=== PATIENT | male | born 1990 | race African-American/Black ===

== ENCOUNTER 2017-01-01 16:21 | Emergency (ER) | payer BC, OTHER ==
[~2017-01-01 16:21] MED LIST: CALCIUM ACETAT667 M1 PO; CIPRO PO; DIOVAN160 MG PO; LEVAQUIN PO; LOPRESSOR PO; LORTAB 7.5-5001 TAB PO; METRONIDAZOLE PO; MICRO-K PO; PHENERGAN PO; SENSIPAR30 MG PO; VICODIN 5/500 T1 TAB PO; ZEMPLAR1 MCG PO; [UNRECOGNIZED DRUG - OTHER]
== END 2017-01-01 16:50 | disposition home or self-care (01) ==
LOC: CFTX 16:21
DX: H10.023 Other mucopurulent conjunctivitis, bilateral (principal)
CPT/HCPCS: 99283

== ENCOUNTER 2017-01-04 18:23 | Emergency (ER) | payer BC, OTHER | END 2017-01-04 18:37 | disposition home or self-care (01) | LOC: CED 18:23 | DX: H10.33 Unspecified acute conjunctivitis, bilateral (principal); I10 Essential (primary) hypertension | CPT/HCPCS: 99282 ==

== ENCOUNTER 2017-04-09 14:28 | Inpatient (IN) | payer MEDICARE ==
--- NOTE | ~2017-04-09 | CO ---
Unit #: [id number] #: [id number] Patient: TOBI HURTADO [id number] [address] [place], [place] [address] [id number] MR#: [id number] NAME: TOBI HURTADO ROOM: 574 Age: 26 Sex: M Admission Date: 04/09/2017 : 1990 Attending Physician: Kelsey Valdez M.D. Consultation Date: 04/12/2017 CONSULTATION REPORT REASON FOR CONSULTATION Evaluate for possible removal of peritoneal dialysis catheter. Thank you very much for asking us to see Mr. Hurtado. HISTORY OF PRESENT ILLNESS He is a 26-year-old black male, who has a long history of renal disease. In 2008, he had the right lower quadrant peritoneal dialysis catheter placed. This did not work well, and he subsequently had it removed and had a left lower quadrant peritoneal dialysis catheter placed. He has used since 2008. In the antrum, he had an umbilical hernia repair performed reportedly with mesh per his history. He has not been doing well with peritoneal dialysis and is being changed to hemodialysis. He presented with some abdominal pain and discomfort. A CT scan of the abdomen and pelvis revealed a right renal mass. He is being evaluated by Urology. I have asked at this time to evaluate for possible removal of his peritoneal dialysis catheter. PAST MEDICAL HISTORY End-stage renal disease. PAST SURGICAL HISTORY Appendectomy, peritoneal dialysis catheter placement, and tunneled dialysis catheter placement. MEDICATIONS Please see med rec sheet. ALLERGIES No known medical allergies. FAMILY HISTORY Noncontributory. SOCIAL HISTORY No tobacco or alcohol use. IMMUNIZATION STATUS Unknown. REVIEW OF SYSTEMS Negative except for above. Unit #: [id number] #: [id number] Patient: TOBI HURTADO PHYSICAL EXAMINATION GENERAL: Well-developed, well-nourished, black male, in no apparent distress. Awake, alert, and oriented. VITAL SIGNS: Afebrile with a pulse of 117, respirations 20, and blood pressure 122/88. NECK: Supple. No thyromegaly or adenopathy. BACK: No CVA or spinous tenderness. ABDOMEN: The patient's abdomen is mildly distended but soft. No rebound, peritoneal signs, or masses. There was some mild to moderate diffuse tenderness but no guarding. His peritoneal dialysis catheter is in the left lower quadrant, and there is no erythema or induration or drainage. There was no evidence of infection. DIAGNOSTIC STUDIES LABORATORY RESULTS: Reveal the patient to have a CMP that shows a glucose of 101, BUN 40, creatinine 10.7, sodium 132, and chloride 99. Liver function studies on admission were normal. The patient's white count is 16 with hemoglobin of 10.6, and hematocrit of 33.4. Peritoneal dialysis fluid had no growth so far on culture. IMPRESSION A 26-year-old black male, who is being changed to hemodialysis. At some point, he will need his peritoneal dialysis catheter removed. We await the evaluation by Urology as if he needs an open or laparoscopic procedure to evaluate or remove his renal mass. Then, his peritoneal dialysis catheter could be removed at the same time. Although, all this was fully discussed with the patient in detail as well as his mother, she is at the bedside, we have also discussed all per telephone with Dr. Juan Edwards, of Nephrology. Dictated by... Yo Davidson M.D. DIAMANTEG/samira TD: 04/13/2017 13:41 JOB #: [id number] CC: Courtney Tejada M.D. [facility] Kelsey Valdez M.D. CONSULTATION REPORT Page 1 of 1 X Yo Davidson MD X CONSULTATION REPORT
--- NOTE | ~2017-04-09 | CT4 ---
[facility] A Service of [facility] & [facility] RADIOLOGY TEXT RESULTS PATIENT: TOBI HURTADO LOCATION: [facility] 567-01 : [birth year] UNIT #: [id number] AGE: [address]: Kelsey Valdez MD SEX: M ORDER DR: [id number] [facility] [address] [place]. [place], [place] [address] [id number] MR#: [id number] Acc #: [id number] NAME: TOBI HURTADO : 1990 SEX: M STUDY DATE/TIME: 04/09/2017 16:39 UNIT: CEDOF ROOM: 04485 STUDY DESCRIPTION: CT Abd and Pelv Wo Cont Attending Physician: Renetta Rodriguez M.D. Ordering Physician: Tobi Campbell M.D. MEDICAL IMAGING REPORT This report is preliminary unless electronic signature is present EXAM CT abdomen and pelvis without contrast HISTORY Abdomen pain. Low back pain starting a few weeks ago. COMPARISON STUDIES 04/11/2011. TECHNIQUE Axial 3 mm images were obtained through the abdomen and pelvis without IV or oral contrast. This CT exam was performed with one or more of the following radiation dose reduction techniques: automatic exposure control, adjustment of mA and/or kV according to patient size, and iterative reconstruction. FINDINGS The lung bases are clear. There is fluid partially filling the abdomen and pelvis which either represents ascites or dialysate. The patient has a peritoneal dialysis catheter present. The liver, gallbladder, spleen, pancreas and adrenal glands are normal. The kidneys contain multiple cysts and there is 1 hyperdense lower pole lesion projecting off of the right kidney that is 2.6 cm in diameter. This lesion is 2.6 cm in maximum dimension, measures 37 Hounsfield units. Back in 2010, there was a lesion projecting off of the same position of the kidney and only measured 3 Hounsfield units, so it was a cyst. It measured about 1.6 cm in size. The aorta is normal in size. There is no adenopathy. The bowel is normal. The bladder, prostate gland are normal. The bones are unremarkable. IMPRESSION 1. There is fluid in the abdomen and pelvis which may represent ascites [facility] A Service of [facility] & [facility] RADIOLOGY TEXT RESULTS PATIENT: TOBI HURTADO LOCATION: [facility] 567-01 : [birth year] UNIT #: [id number] AGE: [address]: Kelsey Valdez MD SEX: M ORDER DR: or dialysate. The patient has a peritoneal dialysis catheter present. 2. There is an indeterminate lesion projecting inferiorly from the right kidney. It measures 2.7 cm in diameter and has a measurement of 37 Hounsfield units. It is likely a hyperdense cyst since on the previous study in 2010, there was a 16 mm lesion in this region that was only 3 Hounsfield units, indicating it was a simple cyst. If desired, a unilateral ultrasound of the right kidney should confirm this is a cyst. 3. There are multiple low-density cysts in each kidney. 4. Otherwise, the study is normal. Dictated by... Nelson Ross M.D. THIS IS AN ELECTRONICALLY VERIFIED REPORT Nelson Ross M.D. at 04/10/2017 6:06 AM ROSANA/clint TD: 04/10/2017 00:06 JOB #: [id number] MEDICAL IMAGING REPORT Page 1 of 1 COPY
--- NOTE | ~2017-04-09 | EKG ---
PATIENT: TOBI HURTADO UNIT #: [id number] Ventricular Rate: 111 BPM Atrial Rate: 111 BPM P-R Interval: 116 ms QRS Duration: 90 ms Q-T Interval: 332 ms QTC Calculation(Bezet): 451 ms P Lyons: 55 degrees Calculated R Lyons: 15 degrees Diagnosis Line: Sinus tachycardia Diagnosis Line: Nonspecific T wave abnormality Diagnosis Line: Abnormal ECG Diagnosis Line: When compared with ECG of 01-JAN-2010 23:51, Diagnosis Line: Inverted T waves have replaced nonspecific T wave Diagnosis Line: abnormality in Inferior leads Diagnosis Line: Confirmed by ANGELIC RODRIGUEZ MD ([id number]) on 04/15/2017 Diagnosis Line: 6:42:09 PM INTERPRETING MD: JENNIFER GASPAR
--- NOTE | ~2017-04-09 | CO ---
Unit #: [id number] #: [id number] Patient: TOBI HURTADO [id number] [address] [address] [id number] I MR#: [id number] NAME: TOBI HURTADO ROOM: 567 Age: 26 Sex: M Admission Date: 04/09/2017 : 1990 Attending Physician: Kelsey Valdez M.D. Primary Care Physician: Yolie Primary Care Physician Requesting Physician: Renetta Rodriguez M.D. Consultation Date: 04/09/2017 CONSULTATION REPORT REASON FOR CONSULTATION Antibiotic management. HISTORY OF PRESENT ILLNESS The patient is a 26-year-old male with a history of chronic renal failure. He is supposed to be on peritoneal dialysis since 2008, but lately has not been regular in doing his dialysis as directed. Instead of four times a day he has been doing it two times a day, so his hemodialysis catheter had been put in late last month and he has been started on hemodialysis. The patient is now admitted with two weeks of abdominal pain. No fevers. No chills. Some nausea and vomiting, diarrhea. Pain got worse and after the patient came in to the emergency room here he had low-grade fever, leukocytosis. Peritoneal fluid shows 2000 WBCs positive leukocytes. Cultures are pending. It looks like he got some tobramycin, Rocephin and vancomycin. Infectious disease consultation was requested for further evaluation and antibiotic management. PAST MEDICAL HISTORY 1. Chronic renal failure as noted above. 2. Peritoneal dialysis catheter placement. 3. Shiley placement. SOCIAL HISTORY Noncontributory. FAMILY HISTORY Noncontributory. ALLERGIES No known drug allergies. CURRENT MEDICATIONS Antibiotics as noted above. PHYSICAL EXAMINATION GENERAL: The patient is lying in bed, comfortable, in no distress. VITALS: Temperature 98.4, t-max 100.4, respiratory rate 14, blood pressure 127/78. HEENT: Unremarkable. CHEST: Clear to auscultation. HEART: Normal S1 and S2. ABDOMEN: Soft, nondistended, fairly tender. No guarding or rebound noted. Unit #: [id number] #: [id number] Patient: TOBI HURTADO DIAGNOSTIC STUDIES IMAGING: CT of the abdomen and pelvis shows some abdominal fluid, which could represent some ascites, some renal lesions compatible with cysts. LABORATORY: BUN 73, creatinine 15.5, peritoneal fluid has 4,691 WBCs, 13% neutrophils, 35% lymphocytes. Gram stain is negative, cultures pending. White blood cell count 15, hemoglobin 9.6, platelets 386. Urinalysis was nitrate positive. Some pyuria. Blood culture and urine culture pending. Peritoneal fluid gram stain negative. ASSESSMENT 1. Peritonitis secondary to PD catheter. 2. Endstage renal disease on dialysis, initially PD catheter dialysis, now hemodialysis. PLAN At this time the differential on the PD catheter white blood cell count is surprising to be lymphocytic. I would have expected it to be neutrophilic, considering that this sounds like a secondary peritonitis, which is a possibility of either an atypical infection or noninfectious cause. I will go ahead and continue the patient on vancomycin, but switch her Rocephin to tobramycin to increase her spectrum and (1) . Will consider sending peritoneal fluid for cytology. Will wait for opinion from the renal service. Follow up on cultures. Further recommending depending on the course. I would like to thank Dr. Rodriguez for asking us to participate in the care of this patient. We will follow this patient along with you. Dictated by... Courtney Rhoades TD: 04/11/2017 11:10 JOB #: [id number] CONSULTATION REPORT Page 1 of 1 X Ramiro Moses MD X CONSULTATION REPORT
--- NOTE | ~2017-04-09 | HP ---
Unit #: [id number] #: [id number] Patient: TOBI HURTADO [id number] [address] [place], [place] [address] [id number] MR#: [id number] NAME: TOBI HURTADO ROOM: Age: 26 Sex: M Admission Date: 04/09/2017 : 1990 Attending Physician: Vivek Harmon M.D. Primary Care Physician: No Primary Care Physician HISTORY AND PHYSICAL CHIEF COMPLAINT Abdominal pain. DISCUSSION This is a 26-year-old gentleman who has a history of chronic renal failure on peritoneal dialysis, recently been on hemodialysis. He presented to emergency room with chief complaining of two-weeks of abdominal pain. On CT scan, a CT scan shows fluid in the abdomen and pelvis, multiple cysts in the kidneys but peritoneal fluid has some neutrophils and patient is diagnosed with spontaneous bacterial peritonitis. Patient received in the emergency room vancomycin and gentamicin, Rocephin one dose and eventually been admitted. He denies fever, chills, cough or any other complaint. He said he has been having diffuse lower abdominal pain for last two weeks. PAST MEDICAL HISTORY 1. History of chronic renal failure on peritoneal dialysis, now on the hemodialysis. 2. History of Shiley placement. 3. History of a couple of minor procedures for placement of peritoneal dialysis. ALLERGIES No known drug allergies. HOME MEDICATION He takes only: 1. Calcium acetate 668 mg. 2. Fosrenol 1 g with each meal. FAMILY HISTORY Noncontributory. SOCIAL HISTORY Denies alcohol, denies other illicit drug use. REVIEW OF SYSTEMS Negative except as per history of present illness. PHYSICAL EXAMINATION GENERAL: On examination young man lying in the bed comfortably currently not in any distress. On general examination is alert, awake, oriented x3, comfortable, not in any distress. VITAL SIGNS: Current vitals are following: Temperature is 98.7, heart rate is 110, respiratory rate is 15, blood pressure 139/86, oxygen is 100% Unit #: [id number] #: [id number] Patient: TOBI HURTADO on room air. HEENT: On HEENT examination pupils equally react to light and accommodation. Head is normocephalic and atraumatic. NECK: Supple. No JVD. HEART: S1, S2, regular rate and rhythm. ABDOMEN: Abdomen is soft. Diffuse tenderness positive. No guarding. No rigidity. EXTREMITIES: Inspection normal. No cyanosis. No clubbing. No edema. NEUROLOGIC: No focal neurological deficit. DIAGNOSTIC STUDIES LABORATORY: Workup is following: Abdominal fluid shows hazy appearance, WBCs too numerous to count, RBCs less than 1000, neutrophils 13. Lactic acid level is 0.5. UA has positive nitrite, WBC 50 t0 100. Sodium 135, potassium 4.2, glucose 97, BUN 67, creatinine 14.2, LFTs within normal limits, white count 14, hemoglobin 10, hematocrit 34, platelets 411. ASSESSMENT AND PLAN 1. Spontaneous bacterial peritonitis: Patient receives vancomycin, gentamicin. Ask ID, Dr. Ramiro Moses, to evaluate. 2. Urinary tract infection: IV Rocephin. 3. End-stage renal disease on peritoneal dialysis, currently on hemodialysis: Ask Nephrology to evaluate. Dictated by Courtney White/lyndon TD: 04/09/2017 22:58 JOB #: [id number] HISTORY AND PHYSICAL Page 1 of 1 X X HISTORY AND PHYSICAL
--- NOTE | ~2017-04-09 | DS ---
Unit #: [id number] #: [id number] Patient: TOBI HURTADO [id number] [address] [address] [id number] I MR#: [id number] NAME: TOBI HURTADO ROOM: 574 Age: 26 Sex: M Admission Date: 04/09/2017 : 1990 Discharge Date: 04/15/2017 Attending Physician: Kelsey Valdez M.D. Primary Care Physician: No Primary Care Physician DISCHARGE SUMMARY PRINCIPAL DIAGNOSES 1. Sepsis secondary to peritoneal dialysis catheter peritonitis. Causative organism not obtained. 2. Right renal mass concerning for underlying malignancy. 3. Systolic congestive heart failure with ejection fraction of 30 to 35%. 4. Moderate pericardial effusion secondary to noncompliance with peritoneal dialysis. 5. Tachycardia. 6. End-stage renal disease, now maintained on hemodialysis Wednesday, , Wednesday. 7. Anemia of chronic kidney disease. Discharge hemoglobin 8.2. 8. Constipation, now resolved. 9. Moderate protein malnutrition. CONSULTANTS Dr. Edwards, Nephrology. Dr. Stone, Cardiology. Dr. Davidson, General Surgery. Dr. Orlando, Urology. Dr. Davila, Infectious Disease. PROCEDURES 1. Two-dimensional echocardiogram on April 14, 2017, with ejection fraction of 30 to 35%. Severe apical hypokinesis with normal contractility at the base of the left ventricle seen. Right ventricular systolic pressure of 30 to 40 mmHg. Mild tricuspid regurgitation noted, moderate pericardial effusion noted. 2. Removal of peritoneal dialysis catheter on April 14, 2017, this occurred without complication. 3. CT scan of the abdomen and pelvis without contrast on April 09, 2017, with fluid in the abdomen and pelvis consistent with dialysate. Indeterminant lesion projecting inferiorly from the right kidney measuring 2.7 cm in diameter. Multiple low density cyst in each kidney. 4. Bilateral renal ultrasound on April 14, 2017, with exophytic lesion on the right kidney. No definite blood flow. Both kidneys are atrophic. CLINICAL HISTORY AND HOSPITAL COURSE Mr. Hurtado is a nice 26-year-old -Indian male with a history of end-stage renal disease maintained on peritoneal dialysis who presents to the emergency department with complaints of abdominal pain. Please refer to H and P for further details. Patient underwent removal of dialysate fluid in the emergency department with a significant amount of white blood Unit #: [id number] #: [id number] Patient: TOBI HURTADO and patient was subsequently admitted for presumed peritonitis. Patient was started on empiric antibiotics and Infectious Disease was consulted. Initial cultures from the emergency department did not have any growth; however, fluid sample was small, thus, a second fluid sample was obtained and this also remained negative. However, patient has remained afebrile and leukocytosis has improved. He is being transitioned to oral antibiotics in the care of Infectious Disease and will complete a course of treatment as noted. Peritoneal dialysis catheter was removed by General Surgery. Nephrology was consulted given his renal disease. Patient had been noncompliant with peritoneal dialysis and has now been transitioned to hemodialysis which he will continue as noted. Patient was also having persistent tachycardia and was placed on low-dosed beta blockers. Two-dimensional echocardiogram was done revealing a moderate pericardial effusion likely secondary to his poor dialysis compliance. This should resolve on its own. Echo also revealed decreased ejection fraction and Dr. Stone was consulted. At this time, plan is to complete course of treatment for patient's peritonitis, continue hemodialysis and as an outpatient, patient will undergo cardiac catheterization to ensure vessels are clear. CT scan of the abdomen and pelvis done in the emergency department for evaluation of the patient's abdominal pain revealed a mass on the right kidney. Ultrasound revealed this to be a solid lesion, for this reason, Dr. Orlando was consulted and there were concerns that perhaps this is underlying malignancy. Plan is for patient to undergo radiofrequency ablation at [facility], under the care of Dr. Orlando, as an outpatient. Patient did also have some complaints of constipation but he has been able to have bowel movements during hospitalization, and this has resolved. Patient will be discharged home later today with medications as noted. DISCHARGE CONDITION Stable. DISCHARGE STATUS Discharged to home. DISCHARGE MEDICATIONS 1. Diflucan 200 mg p.o. daily for 6 days. 2. Coreg 6.25 mg p.o. b.i.d. 3. Flagyl 500 mg p.o. t.i.d. for another 6 days. 4. Percocet 5/325 one tablet p.o. q.4 hours p.r.n. for pain, number given 15. 5. Fosrenol 1 g p.o. t.i.d. with meals. 6. Levaquin 750 mg p.o. every 48 hours for another 4 doses, next dose is due April 16, 2017. DISCHARGE INSTRUCTIONS Patient was instructed to continue hemodialysis Tuesdays, , Saturdays. He is to follow a regular diet but monitor salt intake. FOLLOW UP Unit #: [id number] #: [id number] Patient: TOBI HURTADO Patient will follow-up with Dr. Stone on May 06, 2017, for an echo at 2:45 p.m. and then will be seen by Dr. Stone afterwards. He will follow up with his primary accounting advisory services manager, Dr. Douglas, as previously scheduled. He will follow up with Dr. Orlando in 1-2 weeks with plans for outpatient radiofrequency ablation of the right renal mass. Dictated by... Kelsey Valdez M.D. KATHY/amelia TD: 04/15/2017 23:19 JOB #: [id number] DISCHARGE SUMMARY Page 1 of 1 X Kelsey Valdez MD X DISCHARGE SUMMARY
--- NOTE | ~2017-04-09 | CO ---
Unit #: [id number] #: [id number] Patient: TOBI HURTADO [id number] [address] [address] [id number] I MR#: [id number] NAME: TOBI HURTADO ROOM: 567 Age: 26 Sex: M Admission Date: 04/09/2017 : 1990 Attending Physician: Kelsey Valdez M.D. Primary Care Physician: No Primary Care Physician Consultation Date: 04/10/2017 CONSULTATION REPORT REASON FOR CONSULT Dialysis needs. HISTORY OF PRESENT ILLNESS Mr. Hurtado is a 26-year-old -[place] male with longstanding history of kidney disease going back to 2008. Overall, the patient is a poor historian and very quiet. Apparently, he has been recently converted over from peritoneal dialysis to hemodialysis and had a tunneled dialysis catheter placed last week. He had his first hemodialysis treatment on and would be due for his second one today. It is not clear why he was switched over as the office is closed here with it being the weekend. He states that he was not doing his peritoneal dialysis as instructed, possibly only doing three of four treatments today. When I asked why he was not compliant with his treatments, he said it was related to trying to work two jobs. Patient presented with some abdominal pain to the emergency room. He did have an elevated white blood cell count and is being treated for peritonitis. Patient states that he has had peritonitis before, but he says he is not hurting as bad as he did during those other episodes. He denies any chest discomfort or shortness of breath. No swelling. He does still make urine. PAST MEDICAL HISTORY 1. End-stage renal disease, unknown cause. 2. Hyperphosphatemia. PAST SURGICAL HISTORY 1. Appendectomy. 2. Peritoneal dialysis catheter placement. 3. Tunneled dialysis catheter placement. MEDICATIONS Home meds are only binders, according to him, which are calcium acetate and Fosrenol. ALLERGIES No known drug allergies. FAMILY HISTORY He denies any knowledge of any other family members with kidney disease or dialysis. No personal or family history of hypertension or diabetes. SOCIAL HISTORY The patient is working in a warehouse. He denies alcohol, tobacco, or illicit drug use. Unit #: [id number] #: [id number] Patient: TOBI HURTADO REVIEW OF SYSTEMS A complete 12-point review of systems was completed with the above findings. In addition, he has had a low-grade fever here. No headaches or dizziness. No nosebleeds, sore throat, or earache. No chest pain or palpitations. No cough or hemoptysis. No nausea or vomiting with the abdominal pain. No diarrhea. No bright red blood per rectum or melena. No hematuria. No rashes or itching. No flank pain. No night sweats or hot flashes. No intolerance to heat. No bleeding issues. No recent weight changes unless otherwise indicated. The review of systems was negative. PHYSICAL EXAMINATION VITAL SIGNS: Patient is afebrile now with a T-max of 100.4, pulse 92, respiratory rate 16, blood pressure 126/80. I's and O's are positive by 254 mL. Urine output was 400 mL. GENERAL: This is a 26-year-old -[place] male, very quiet, again a poor historian but in no acute distress. HEENT: Head is atraumatic, normocephalic. Eyes show pale conjunctivae with no scleral icterus. No nasal drainage or nosebleed. Oropharynx is dry. No thrush. NECK: Shows no rigidity, no JVD. HEART: Regular rate and rhythm now with no murmur or rub appreciated. LUNGS: Clear with no wheezing or rhonchi. Breathing is nonlabored. ABDOMEN: Soft, diffusely tender with some guarding. He does have bowel sounds. He does have a peritoneal dialysis catheter in place in the left lower quadrant without drainage. EXTREMITIES: No lower extremity clubbing, cyanosis, or edema. SKIN: Dry with no rashes. MUSCULOSKELETAL: No CVA tenderness to palpation. LYMPHATIC: There is no neck, cervical lymphadenopathy. PSYCHIATRIC: Mood and affect appear normal. VASCULAR: The patient does have a right chest tunneled catheter in place with no erythema or drainage. DIAGNOSTIC STUDIES LABORATORY: Peritoneal dialysis fluid shows no organisms but a few white blood cells. Chemistry today: Sodium 131, potassium 4, chloride 95, bicarb 21, glucose 60, BUN 73, creatinine 15.5. CBC this morning: White count 15, hemoglobin 9.6, platelet count 386,000 with a left shift. Peritoneal fluid total white count was 4600 with 85% lymphs and 13% neutrophils. Lactic acid was normal. Urinalysis was nitrite positive with numerous white blood cells and bacteria with culture pending. Admission white count was 14.5. IMAGING: CT of the abdomen and pelvis did show a right kidney lesion that is larger than previous and indeterminate. Ultrasound was recommended. Multiple cysts in each kidney. ASSESSMENT AND PLAN 1. End-stage renal disease: I have ordered regular hemodialysis today to continue his Wednesday, , Wednesday schedule. Again, details are sketchy as to why he was switched over from peritoneal dialysis to hemodialysis but it sounds like it was a compliance issue. Not sure what the plans are as far as the peritoneal dialysis catheter but certainly a consideration could be given to removing the peritoneal dialysis catheter in light of his abdominal pain if he indeed is going to be a permanent hemodialysis patient. I will have Unit #: [id number] #: [id number] Patient: TOBI HURTADO to wait until Wednesday to discuss this with the peritoneal dialysis nurses. 2. Hyponatremia: This was due to his renal insufficiency and should correct with dialysis. 3. Metabolic acidosis: This should also correct with the bicarbonate with dialysis. 4. Urinary tract infection on antibiotics with culture pending. 5. Suspected peritonitis on multiple antibiotics per infectious disease. I would like to thank, Dr. Kelsey Valdez, for this consult and the opportunity to participate in the evaluation and care of Mr. Hurtado. Dictated by... Edwin Houston Jr., M.D. SJK/janice TD: 04/11/2017 14:32 JOB #: [id number] CONSULTATION REPORT Page 1 of 1 X Edwin Houston MD X CONSULTATION REPORT
--- NOTE | ~2017-04-09 | US77 ---
[facility] A Service of [facility] RADIOLOGY TEXT RESULTS PATIENT: TOBI HURTADO LOCATION: [facility] [id number] : [birth year] UNIT #: [id number] AGE: [address]: Kelsey Valdez MD SEX: M ORDER DR: [id number] [facility] [address] [place], [place] [address] [id number] I MR#: [id number] Acc #: [id number] NAME: TOBI HURTADO : 1990 SEX: M STUDY DATE/TIME: 04/11/2017 8:17 UNIT: [facility] ROOM: [facility] STUDY DESCRIPTION: US Kidney Bilateral Complete Attending Physician: Kelsey Valdez M.D. Ordering Physician: Edwin Houston Jr., M.D. Primary Care Physician: No Primary Care Physician MEDICAL IMAGING REPORT This report is preliminary unless electronic signature is present EXAM Bilateral renal ultrasound. HISTORY Right renal mass. Chronic renal failure. Patient is on peritoneal dialysis. Indeterminate exophytic right renal lesion seen on CT scan yesterday. TECHNIQUE Ultrasound of the kidneys was performed. FINDINGS The lower pole exophytic lesion from the right kidney is visualized. It measures 3 x 3 x 2.6 cm and appears to be solid. There is no internal flow visible. The kidney is 9.6 cm in length and has echogenic cortex which is slightly atrophic. There is fluid superior to the bladder with septations. Yesterday's CT scan shows a large amount of dialysate fluid versus ascites in the abdomen and this probably represents the same fluid, although the septations are not visible on the CT scan. The left kidney is very small measuring 5.1 cm in size and has some small cysts. IMPRESSION 1. The right kidney lower pole exophytic lesion seen on CT scan imaging yesterday appears solid on ultrasound. No definite blood flow is seen within it, but it clearly has internal architecture suggesting a solid lesion. Urology consult is recommended. I am not sure is unenhanced MRI would be useful in further delineating this lesion. 2. The fluid that was seen on the CT scan filling the pelvis and abdomen yesterday is also seen on the ultrasound, at least in the pelvis it shows multiple thin septations. 3. Both kidneys are atrophic. 4. The renal lesion has grown about 50% in volume since the [address] CT scan [facility] A Service of [facility] RADIOLOGY TEXT RESULTS PATIENT: TOBI HURTADO LOCATION: [place] [address] : [birth year] UNIT #: [id number] AGE: [address]: Kelsey Valdez MD SEX: M ORDER DR: when it had an appearance suggesting that it was a cyst. Dictated by... Nelson Ross M.D. THIS IS AN ELECTRONICALLY VERIFIED REPORT Nelson Ross M.D. at 04/12/2017 7:26 AM ROSANA/jaymie TD: 04/11/2017 15:07 JOB #: [id number] MEDICAL IMAGING REPORT Page 1 of 1 COPY
--- NOTE | ~2017-04-09 | EKG ---
PATIENT: TOBI HURTADO UNIT #: [id number] Ventricular Rate: 88 BPM Atrial Rate: 88 BPM P-R Interval: 132 ms QRS Duration: 90 ms Q-T Interval: 352 ms QTC Calculation(Bezet): 425 ms P Dunmore: 52 degrees Calculated R Dunmore: 24 degrees Calculated T Dunmore: 43 degrees Diagnosis Line: Normal sinus rhythm Diagnosis Line: Normal ECG Diagnosis Line: When compared with ECG of 14-APR-2017 19:33, Diagnosis Line: (unconfirmed) Diagnosis Line: Borderline criteria for Inferior infarct are no Diagnosis Line: longer Present Diagnosis Line: T wave inversion no longer evident in Inferior Diagnosis Line: leads Diagnosis Line: Confirmed by ANGELIC RODRIGUEZ MD ([id number]) on 04/15/2017 Diagnosis Line: 6:48:44 PM INTERPRETING MD: JENNIFER GASPAR
--- NOTE | ~2017-04-09 | OR ---
Unit #: [id number] #: [id number] Patient: TOBI HURTADO [id number] [address] [address] [id number] I MR#: [id number] NAME: TOBI HURTADO ROOM: 574 Date of Procedure: 04/14/2017 Admission Date: 04/09/2017 Surgeon: Bob Nieto M.D. : 1990 Attending Physician: Kelsey Valdez M.D. OPERATIVE REPORT PREOPERATIVE DIAGNOSIS Infected peritoneal dialysis catheter. POSTOPERATIVE DIAGNOSIS Infected peritoneal dialysis catheter. PROCEDURE PERFORMED Removal of infected peritoneal dialysis catheter. DIESEL [employer] MECH[employer]IC None. ANESTHESIA General. ESTIMATED BLOOD LOSS Minimal. IV FLUIDS 400 crystalloid. COMPLICATIONS None. INDICATIONS FOR PROCEDURE The patient is a 26-year-old gentleman with peritoneal dialysis catheter, who presents for removal. DESCRIPTION OF PROCEDURE The patient was taken to the operating theater and placed in supine position. General anesthesia was induced. His abdomen was prepped and draped. An incision was then made over the area of the cuff. This was cut down to the tubing. I then freed the cuff from the surrounding connective tissue. This allowed me to remove the tubing from the abdominal cavity. This was sent for culture, both anaerobic, aerobic, and fungal. I then closed the peritoneal defect with 2-0 Vicryl suture. I then closed the wound with 4-0 Vicryl. The patient tolerated the procedure well and sent to the recovery room in good condition. Dictated by... Bob Nieto M.D. Unit #: [id number] #: [id number] Patient: TOBI HURTADO JNO/modl TD: 04/15/2017 02:55 JOB #: [id number] OPERATIVE REPORT Page 1 of 1 X Bob Nieto MD PROCEDURE OPERATIVE NOTE
--- NOTE | ~2017-04-09 | CR63 ---
[facility] A Service of [facility] RADIOLOGY TEXT RESULTS PATIENT: TOBI HURTADO LOCATION: [place] [address] : [birth year] UNIT #: [id number] AGE: [address]: Kelsey Valdez MD SEX: M ORDER DR: [id number] [place] [id number] [facility] [place], [place] [address] [id number] I MR#: [id number] Acc #: [id number] NAME: TOBI HURTADO : 1990 SEX: M STUDY DATE/TIME: 04/15/2017 17:14 UNIT: [facility] ROOM: 4 STUDY DESCRIPTION: CR Chest 2 View Attending Physician: Kelsey Valdez M.D. Ordering Physician: Manoj Stone M.D. MEDICAL IMAGING REPORT This report is preliminary unless electronic signature is present EXAM two-view chest 04/15/2017 HISTORY 26-year-old male with shortness of air for 1 week. COMPARISON STUDIES Chest 12/25/2009. FINDINGS 2 views of the chest demonstrate low lung volumes. Lungs otherwise clear. Small bilateral pleural effusions. No pneumothorax. Right-sided IJ hemodialysis catheter with tip projecting over the right atrium. Heart size and mediastinum within normal limits. Pulmonary vasculature unremarkable. IMPRESSION 1. Low lung volumes with small bilateral pleural effusions. 2. Right IJ hemodialysis catheter with tip projecting over the right atrium. 3. No pneumothorax. Dictated by... Isaac Toth M.D. THIS IS AN ELECTRONICALLY VERIFIED REPORT Isaac Toth M.D. at 04/16/2017 9:10 AM MARIBEL/clint TD: 04/15/2017 20:30 JOB #: [id number] [facility] A Service [facility] RADIOLOGY TEXT RESULTS PATIENT: TOBI HURTADO LOCATION: [facility] 574 : [birth year] UNIT #: [id number] AGE: [address]: Kelsey Valdez MD SEX: M ORDER DR: MEDICAL IMAGING REPORT Page 1 of 1 COPY
--- NOTE | ~2017-04-09 | CO ---
Unit #: [id number] #: [id number] Patient: TOBI HURTADO [id number] [address] [address] [id number] I MR#: [id number] NAME: TOBI HURTADO ROOM: 221 Age: 26 Sex: M Admission Date: 04/09/2017 : 1990 Attending Physician: Kelsey Valdez M.D. Consultation Date: 04/12/2017 CONSULTATION REPORT CHIEF COMPLAINT Abdominal pain. HISTORY OF PRESENT ILLNESS A 26-year-old gentleman with chronic renal failure. He is on peritoneal dialysis. He has a history of recent CT scan that shows a 2.7 cm right lower pole mass. This is suspicious for neoplasm. The patient's abdominal pain associated with possible noncompliance with his peritoneal dialysis catheter. His pain is gnog-jz-olxdynpe, intermittently worse. PAST MEDICAL HISTORY Renal failure, Shiley placement. He has had peritoneal dialysis catheter x2. ALLERGIES No known drug allergies. MEDICATIONS He takes calcium acetate and Fosrenol. FAMILY HISTORY Noncontributory. SOCIAL HISTORY He denies smoking or drinking. REVIEW OF SYSTEMS Negative for 10 points except for some abdominal discomfort. PHYSICAL EXAMINATION VITAL SIGNS: Afebrile. Vital signs stable. HEENT: Eyes equal and reactive to light. NECK: Supple. HEART: Benign. LUNGS: Benign. EXTREMITIES: No cyanosis or edema. NEUROLOGIC: Cranial nerves II through X intact. DICTATION ENDS HERE Please note: This report has been placed on the patient's electronic Unit #: [id number] #: [id number] Patient: TOBI HURTADO medical record in an incomplete status following multiple physician notifications for a completion without a response or resolution. Dictated by... Courtney Tejada/samira TD: 04/13/2017 07:52 JOB #: [id number] CONSULTATION REPORT Page 1 of 1 X Loi Orlando MD CONSULTATION REPORT
--- NOTE | ~2017-04-09 | CO ---
Unit #: [id number] #: [id number] Patient: TOBI HURTADO [id number] [address] [address] [id number] I MR#: [id number] NAME: TOBI HURTADO ROOM: [facility] Age: 26 Sex: M Admission Date: 04/09/2017 : 1990 Attending Physician: Kelsey Valdez M.D. Primary Care Physician: No Primary Care Physician Consultation Date: 04/15/2017 CONSULTATION REPORT ADDENDUM PLAN Renal is currently following the patient. Dr. Stone will see the patient for further instructions and orders. Dictated by... Traci Rodriguez A.P.R.N. for Manoj Stone M.D. AM/aditya TD: 04/27/2017 15:10 JOB #: [id number] CONSULTATION REPORT Page 1 of 1 X Traci Rodriguez APRN CONSULTATION REPORT
--- NOTE | ~2017-04-09 | CO ---
Unit #: [id number] #: [id number] Patient: TOBI HURTADO [id number] [address] [place], [place] [address] [id number] I MR#: [id number] NAME: TOBI HURTADO ROOM: 574 Age: 26 Sex: M Admission Date: 04/09/2017 : 1990 Attending Physician: Kelsey Valdez M.D. Primary Care Physician: No Primary Care Physician Consultation Date: 04/15/2017 CONSULTATION REPORT REASON FOR CONSULTATION Pericardial effusion, abnormal EKG and EF of 30% to 35%. HISTORY OF PRESENT ILLNESS The patient is a 26-year-old -[place] male who does not have a protection specialist. He denies any past medical history of myocardial infarction and cardiac catheterization. The patient had a 2D echocardiogram done on April 14, 2017, which showed an EF of 30% to 35%, severe apical hypokinesis, mild TR with RVSP of 30 to 40 mmHg and a moderate effusion with no tamponade. The echo also showed contractible pattern that could suggest apical hollowing secondary to stress cardiomyopathy. His EKG showed possible old inferior [place]. The patient has a past medical history of renal disease. He was diagnosed with renal disease in 2008. He has been on peritoneal dialysis and follows with Dr. Saunders. The patient last week had a tunneled cath placed and was converted over to hemodialysis. Additional past medical history includes hyperphosphatemia and peritonitis. The patient presented to the ER with some abdominal pain. He was found to have an elevated white blood cell count and was treated for peritonitis and a urinary tract infection. He denies any nausea, vomiting, fever, chills or shortness of air. He does have occasional left anterior chest pain when he takes a deep breath. Again, cardiology has been consulted for the moderate pericardial effusion, abnormal EKG and low ejection fraction. PAST MEDICAL HISTORY 1. End stage renal disease, on hemodialysis, previously on peritoneal dialysis in 2008. 2. Hyperphosphatemia. 3. History of peritonitis. 4. Right renal mass. The patient is to have a radiofrequency ablation at [facility]. 5. Nonsmoker. PAST SURGICAL HISTORY 1. Appendectomy. 2. Peritoneal dialysis catheter placement and removal. 3. Tunneled dialysis catheter placement. ALLERGIES Unit #: [id number] #: [id number] Patient: TOBI HURTADO No known allergies. HOME MEDICATIONS Calcium acetate 688 mg and Fosrenol 1 g with each meal. FAMILY HISTORY Patient denies any family history of renal disease or coronary artery disease. SOCIAL HISTORY The patient denies alcohol, tobacco and illicit drug abuse. REVIEW OF SYSTEMS A ten point review of systems has been done and is considered otherwise negative unless indicated in the HPI. PHYSICAL EXAMINATION GENERAL: The patient is awake, alert, in no acute distress. VITAL SIGNS: Temperature 99.4, heart rate 109, respirations 18, blood pressure 125/71. He is oxygenating 97%. HEENT: Head is atraumatic, normocephalic. Pupils are equal, round and reactive. Extraocular movements are intact. No drainage from ears or nose. NECK: Supple. Trachea is midline. The patient has a left upper chest dialysis catheter. HEART: S1, S2. Regular rate and rhythm. No murmurs, rubs or gallops appreciated. ABDOMEN: Soft, tender and nondistended. Left lower quadrant bandage. EXTREMITIES: No clubbing, edema or cyanosis. SKIN: Appears to be warm, dry and intact without any unusual rashes or lesions. NEUROLOGIC: The patient is alert and oriented x4. He is pleasant and conversant. No focal deficits. Cranial nerves II-XII appear to be intact. DIAGNOSTIC STUDIES LABORATORY: White blood cells 11.3, hemoglobin 9, hematocrit 28.1, platelets 407, sodium 132, potassium 4.5, chloride 28, CO2 23, BUN 41, creatinine 9.5, glucose 88, magnesium 2.3, calcium 8.1, PTH 203, TSH 1.45. IMAGING: CT scan of the abdomen and pelvis shows a right kidney lesion that is larger than previous and indeterminate. Ultrasound was recommended. ASSESSMENT 1. Pericardial effusion, likely secondary to renal failure. 2. Acute systolic congestive heart failure with an left ventricular ejection fraction of 30% to 35%. 3. Possible old inferior wall myocardial infarction or stress cardiomyopathy. 4. End stage renal disease, on hemodialysis. 5. Peritonitis. 6. Recent peritoneal dialysis discontinued with peritoneal dialysis catheter removal. 7. Hypertension. Unit #: [id number] #: [id number] Patient: TOBI HURTADO Dictated by... Traci Rodriguez A.P.R.N. for Courtney Aldrich TD: 04/15/2017 09:04 JOB #: [id number] CONSULTATION REPORT Page 1 of 1 X Traci Rodriguez APRN CONSULTATION REPORT
[2017-04-09 15:55] LABS: BASOPHIL% 0.3 % (0-2.5); EOSINOPHIL% 0.1 % (0.0-7.0); HEMATOCRIT 34.8 % (38.0-50.0); HEMOGLOBIN 10.8 gm/dL (13.0-16.0); LYMPHOCYTE# 0.5 X10e3 (1.0-3.5); LYMPHOCYTE% 3.6 % (17.0-45.0); MEAN CORPUSCULAR HEMOGLOBIN 26.1 PG (28-34); MEAN CORPUSCULAR HGB CONC 31.1 g/dL (30-36); MEAN PLATELET VOLUME 6.6 FL (6.5-11.5); MONOCYTE% 7.1 % (3.0-12.0); NEUTROPHIL# 12.9 X10e3 (1.5-7.1); NEUTROPHIL% 88.9 % (40-75); PLATELET COUNT 411 X10e3 (140-420); RED BLOOD COUNT 4.14 X10e (3.90-5.60); RED CELL DISTRIBUTION WIDTH 15.3 % (11.0-15.5); WHITE BLOOD COUNT 14.5 X10e3 (4.0-10.5)
[2017-04-09 16:19] LABS: DIFF IND NO
[2017-04-09 16:20] LABS: ALBUMIN SERUM 2.5 g/dL (3.5-5.0); BILIRUBIN, DIRECT 0.1 mg/dL (0.0-0.2); BILIRUBIN,INDIRECT 0.9 mg/dL (0.0-0.9); BUN/CREATININE RATIO 4.71; CALCIUM SERUM 8.2 mg/dL (8.4-10.2); CREATININE SERUM 14.2 mg/dL (0.6-1.4); GLOM FILT RATE Estimated 4.8 mL/min (>60); POTASSIUM 4.2 mmol/L (3.5-5.1); PROTEIN TOTAL SERUM 7.3 g/dL (6.0-8.3)
[2017-04-09 17:26] LABS: URINE SOURCE CLEAN CATCH
[2017-04-09 17:34] LABS: URINE APPEARANCE CLEAR; URINE BILIRUBIN NEG (NEG); URINE BLOOD 3+ (NEG); URINE COLOR YELLOW; URINE GLUCOSE NEG (NEG); URINE KETONE TRACE (NEG); URINE LEUKOCYTE ESTERASE 3+ (NEG); URINE NITRATE POS (NEG); URINE PH 7.5 (5-8); URINE PROTEIN 2+ (NEG); URINE SPECIFIC GRAVITY 1.007 (1.003-1.035); URINE UROBILINOGEN 0.2 MG/DL (NEG)
[2017-04-09 17:35] LABS: CULTURE INDICATED? YES; URBCS1 AUWI 0-2 /[HPF] (0-2); URINE BACTERIA AUWI 1+ (NEGATIVE); URINE SQUAMOUS EPITHELIAL CELL NONE SEEN /[HPF]; UWBCS1 AUWI 50-100 (0-5)
[2017-04-09 20:16] LABS: BF TOTAL NUCLEATED CELL COUNT 4691 CMM (0-100); BODY FLUID APPEARANCE HAZY; BODY FLUID RBC <10000 CMM; BODY FLUID SOURCE PERITONEAL
[2017-04-09] MEDS ORDERED: CALCIUM ACETAT668 MG PO (22:40)
[2017-04-09] MEDS ORDERED: FOSRENOL1000 M1 PO (22:41)
[2017-04-10 05:36] LABS: BASOPHIL# 0.1 X10e3 (0-0.3); BASOPHIL% 0.4 % (0-2.5); EOSINOPHIL% 0.3 % (0.0-7.0); HEMATOCRIT 30.7 % (38.0-50.0); HEMOGLOBIN 9.6 gm/dL (13.0-16.0); LYMPHOCYTE# 1.4 X10e3 (1.0-3.5); LYMPHOCYTE% 9.1 % (17.0-45.0); MEAN CORPUSCULAR HEMOGLOBIN 26.3 PG (28-34); MEAN CORPUSCULAR HGB CONC 31.3 g/dL (30-36); MEAN PLATELET VOLUME 7.2 FL (6.5-11.5); MONOCYTE# 1.2 X10e3 (0-1.0); MONOCYTE% 8.3 % (3.0-12.0); NEUTROPHIL# 12.3 X10e3 (1.5-7.1); NEUTROPHIL% 81.9 % (40-75); PLATELET COUNT 386 X10e3 (140-420); RED BLOOD COUNT 3.66 X10e (3.90-5.60); RED CELL DISTRIBUTION WIDTH 15.3 % (11.0-15.5)
[2017-04-10 06:08] LABS: DIFF IND NO
[2017-04-10 06:09] LABS: BUN/CREATININE RATIO 4.7; CALCIUM SERUM 7.6 mg/dL (8.4-10.2); CREATININE SERUM 15.5 mg/dL (0.6-1.4); GLOM FILT RATE Estimated 4.3 mL/min (>60)
[2017-04-11 05:36] LABS: HEMATOCRIT 32.6 % (38.0-50.0); HEMOGLOBIN 10.3 gm/dL (13.0-16.0); MEAN CELL VOLUME 83.3 FL (83-96); MEAN CORPUSCULAR HEMOGLOBIN 26.5 PG (28-34); MEAN CORPUSCULAR HGB CONC 31.8 g/dL (30-36); MEAN PLATELET VOLUME 7.3 FL (6.5-11.5); RED BLOOD COUNT 3.91 X10e (3.90-5.60); RED CELL DISTRIBUTION WIDTH 15.3 % (11.0-15.5); WHITE BLOOD COUNT 13.7 X10e3 (4.0-10.5)
[2017-04-11 06:09] LABS: BUN/CREATININE RATIO 4.72; CALCIUM SERUM 8.2 mg/dL (8.4-10.2); GLOM FILT RATE Estimated 10.5 mL/min (>60); PHOSPHOROUS 2.2 mg/dL (2.5-4.6); POTASSIUM 3.5 mmol/L (3.5-5.1)
[2017-04-11 06:11] LABS: CREATININE SERUM 7.4 mg/dL (0.6-1.4)
[2017-04-12 05:10] LABS: BASOPHIL# 0.1 X10e3 (0-0.3); BASOPHIL% 0.5 % (0-2.5); EOSINOPHIL# 0.1 X10e3 (0-0.7); EOSINOPHIL% 0.6 % (0.0-7.0); HEMATOCRIT 33.4 % (38.0-50.0); HEMOGLOBIN 10.6 gm/dL (13.0-16.0); LYMPHOCYTE# 0.6 X10e3 (1.0-3.5); LYMPHOCYTE% 3.6 % (17.0-45.0); MEAN CELL VOLUME 83.3 FL (83-96); MEAN CORPUSCULAR HEMOGLOBIN 26.4 PG (28-34); MEAN CORPUSCULAR HGB CONC 31.7 g/dL (30-36); MEAN PLATELET VOLUME 7.1 FL (6.5-11.5); MONOCYTE# 1.1 X10e3 (0-1.0); MONOCYTE% 6.9 % (3.0-12.0); NEUTROPHIL# 14.2 X10e3 (1.5-7.1); NEUTROPHIL% 88.4 % (40-75); PLATELET COUNT 415 X10e3 (140-420); RED BLOOD COUNT 4.02 X10e (3.90-5.60); RED CELL DISTRIBUTION WIDTH 15.2 % (11.0-15.5)
[2017-04-12 05:12] LABS: DIFF IND YES
[2017-04-12 05:53] LABS: BUN/CREATININE RATIO 3.73; CREATININE SERUM 10.7 mg/dL (0.6-1.4); GLOM FILT RATE Estimated 6.7 mL/min (>60); POTASSIUM 4.1 mmol/L (3.5-5.1)
[2017-04-12 06:27] LABS: PLATELET ESTIMATE NORMAL (NORMAL); RBC NORMAL YES
[2017-04-12 06:28] LABS: ANISOCYTOSIS SL; HYPOCHROMIA SL; POIKILOCYTOSIS SL; TARGET CELLS SL
[2017-04-13 05:15] LABS: HEMATOCRIT 32.1 % (38.0-50.0); HEMOGLOBIN 10.2 gm/dL (13.0-16.0); MEAN CELL VOLUME 83.5 FL (83-96); MEAN CORPUSCULAR HEMOGLOBIN 26.4 PG (28-34); MEAN CORPUSCULAR HGB CONC 31.7 g/dL (30-36); RED BLOOD COUNT 3.85 X10e (3.90-5.60); RED CELL DISTRIBUTION WIDTH 15.2 % (11.0-15.5); WHITE BLOOD COUNT 13.8 X10e3 (4.0-10.5)
[2017-04-13 06:04] LABS: CALCIUM SERUM 8.2 mg/dL (8.4-10.2); GLOM FILT RATE Estimated 5.3 mL/min (>60); MAGNESIUM 2.3 mg/dL (1.6-3.0); PHOSPHOROUS 4.9 mg/dL (2.5-4.6)
[2017-04-14 01:34] LABS: CALCIUM (PTHINTACT) 8.1 mg/dL (8.6-10.3)
[2017-04-14 05:31] LABS: HEMATOCRIT 28.1 % (38.0-50.0); MEAN CELL VOLUME 83.3 FL (83-96); MEAN CORPUSCULAR HEMOGLOBIN 26.5 PG (28-34); MEAN CORPUSCULAR HGB CONC 31.9 g/dL (30-36); MEAN PLATELET VOLUME 7.1 FL (6.5-11.5); RED BLOOD COUNT 3.38 X10e (3.90-5.60); RED CELL DISTRIBUTION WIDTH 15.4 % (11.0-15.5); WHITE BLOOD COUNT 11.3 X10e3 (4.0-10.5)
[2017-04-14 05:56] LABS: BUN/CREATININE RATIO 4.31; CALCIUM SERUM 8.1 mg/dL (8.4-10.2); CREATININE SERUM 9.5 mg/dL (0.6-1.4); GLOM FILT RATE Estimated 7.8 mL/min (>60); MAGNESIUM 2.3 mg/dL (1.6-3.0); PHOSPHOROUS 4.6 mg/dL (2.5-4.6); POTASSIUM 4.5 mmol/L (3.5-5.1)
[2017-04-15 08:08] LABS: HEMATOCRIT 25.5 % (38.0-50.0); HEMOGLOBIN 8.2 gm/dL (13.0-16.0); MEAN CELL VOLUME 83.3 FL (83-96); MEAN CORPUSCULAR HEMOGLOBIN 26.8 PG (28-34); MEAN CORPUSCULAR HGB CONC 32.2 g/dL (30-36); RED BLOOD COUNT 3.06 X10e (3.90-5.60); RED CELL DISTRIBUTION WIDTH 15.1 % (11.0-15.5); WHITE BLOOD COUNT 10.7 X10e3 (4.0-10.5)
[2017-04-15 08:43] LABS: BUN/CREATININE RATIO 5.43; CALCIUM SERUM 8.1 mg/dL (8.4-10.2); CREATININE SERUM 11.6 mg/dL (0.6-1.4); GLOM FILT RATE Estimated 6.1 mL/min (>60); POTASSIUM 4.6 mmol/L (3.5-5.1)
[2017-04-15 10:01] LABS: CK TOTAL 31 IU/L (36-174)
[2017-04-15] MEDS ORDERED: DIFLUCAN200 MG PO (14:47)
[2017-04-15] MEDS ORDERED: COREG PO (14:48)
[2017-04-15] MEDS ORDERED: FLAGYL PO (14:50)
[2017-04-15] MEDS ORDERED: PERCOCET5/325 PO (14:51)
[2017-04-15] MEDS ORDERED: LEVAQUIN750 MG PO (14:51)
== END 2017-04-15 19:00 | disposition home or self-care (01) | DRG 981 ==
LOC: CED 14:28 → C5C 22:40 → CEDOF 22:40 → C2A 22:40 → CED 22:52 → CEDOF 22:52 → C5C 04-10 00:21 → C2A 04-12 18:10 → C5C 04-13 18:49
PROVIDERS: Emergency Medicine; Internal Medicine; Internal Medicine Cardiovascular Disease; Internal Medicine Nephrology; Surgery
PROC: 5A1D60Z (ICD-10-PCS; 2017-04-11)
PROC: 0WPG03Z Removal of Infusion Device from Peritoneal Cavity, Open Approach (ICD-10-PCS; 2017-04-14)
PROC: B246YZZ Ultrasonography of Right and Left Heart using Other Contrast (ICD-10-PCS; principal; 2017-04-14 12:00)
DX: T85.71XA Infection and inflammatory reaction due to peritoneal dialysis catheter, initial encounter (principal); A41.9 Sepsis, unspecified organism; K65.2 Spontaneous bacterial peritonitis; N18.6 End stage renal disease; I50.22 Chronic systolic (congestive) heart failure; I31.3 Pericardial effusion (noninflammatory); E44.0 Moderate protein-calorie malnutrition; N39.0 Urinary tract infection, site not specified; Z99.2 Dependence on renal dialysis; Z91.15 Patient's noncompliance with renal dialysis; Z87.891 Personal history of nicotine dependence; R00.0 Tachycardia, unspecified; D63.1 Anemia in chronic kidney disease; K59.00 Constipation, unspecified; N28.89 Other specified disorders of kidney and ureter; Z90.49 Acquired absence of other specified parts of digestive tract
CPT/HCPCS: 36415; 71020; 74176; 76770; 80048; 80076; 80170; 80200; 80202; 81003; 82150; 82310; 82550; 83605; 83690; 83735; 83970; 84100; 84443; 84484; 85025; 85027; 86850; 86900; 86901; 86923; 87040; 87070; 87086; 87102; 87205; 87206; 87340; 88108; 89051; 93005; 93306; 96365; 99285; J0696; J1580; J1644; J2248; J2250; J2270; J3010; J3260; J3370; Q4081

== ENCOUNTER 2017-05-05 01:03 | Observation (INO) | payer SELFPAY ==
--- NOTE | ~2017-05-05 | HP ---
Unit #: [id number] #: [id number] Patient: TOBI HURTADO [id number] [address] [place], [place] [address] [id number] MR#: [id number] NAME: TOBI HURTADO ROOM: Age: 26 Sex: M Admission Date: 05/05/2017 : 1990 Attending Physician: John Parker M.D. Primary Care Physician: No Primary Care Physician HISTORY AND PHYSICAL CHIEF COMPLAINT Anemia. HISTORY This pleasant 26-year-old male with end stage renal failure, currently receiving hemodialysis Tuesdays, and Saturdays, is admitted for worsening anemia. The patient underwent his usual dialysis and was told that he was anemic and would require two units of packed red blood cells. His last dialysis was actually yesterday. He denies any symptoms of worsening anemia. Also, no melena or hematochezia. The patient presented to this emergency department early this morning where two units of packed red blood cells have been ordered. On rectal examination, he is heme negative. His current hematocrit is 19.8, down from 25.5 twenty days ago. He states that he does not take iron nor does he receive Epo. PAST MEDICAL HISTORY 1. Anemia of chronic disease. 2. Moderate pericardial effusion in the past related to uremia. 3. Cardiomyopathy, ejection fraction 30% to 35%. 4. End stage renal failure, currently on hemodialysis with a right chest dialysis catheter in place. Renal failure has been since 2008 and patient was previously on peritoneal dialysis but developed spontaneous bacterial peritonitis and required removal of his peritoneal dialysis catheter. 5. Right renal mass with plans for radiofrequency ablation at [facility]. 6. Appendectomy. ALLERGIES No known drug allergies. HOME MEDICATIONS 1. Vitamin D 50,000 units each week. 2. PhosLo 667 mg t.i.d. with meals. 3. Fosrenol 1 g p.o. b.i.d. with meals. FAMILY HISTORY Negative for kidney disease. SOCIAL HISTORY The patient lives with his . He stopped smoking seven years ago, does not drink alcohol or use illicit drugs. Unit #: [id number] #: [id number] Patient: TOBI HURTADO REVIEW OF SYSTEMS Notable for renal failure, please see above details, renal mass, cardiomyopathy, above mentioned surgeries. All other systems were reviewed and are otherwise negative. PHYSICAL EXAMINATION GENERAL APPEARANCE: Very pleasant 26-year-old, thin male, currently in no acute distress. VITAL SIGNS: Temperature 98.5, pulse 107, respirations 16, blood pressure 105/61. O2 saturation 100% on room air. HEENT: Eyes PERRLA. Extraocular muscles are intact. Pharynx is benign. NECK: Supple without adenopathy or thyromegaly. CHEST: Clear. CARDIAC: Normal S1 and S2. Very soft systolic murmur. ABDOMEN: Bowel sounds are present. Mild suprapubic tenderness. No hepatosplenomegaly or masses. EXTREMITIES: Without clubbing, cyanosis or edema. Pedal pulses are present. Of note, there is a right chest dialysis catheter in place. RECTAL: No masses. Heme negative brown stool. NEUROLOGIC: The patient is awake, alert, oriented. Cranial nerves are intact. Equal strength throughout. DIAGNOSTIC STUDIES LABORATORY: Admission labs - hematocrit is 19.8 and a hemoglobin of 6.2, normal MCV. White blood count is 11.7. Previous hematocrit was 25.5 twenty days ago. SMA-7 - BUN 25, creatinine 7.3, potassium 3.4. ASSESSMENT 1. Normocytic anemia which is worse: Probably anemia is on the basis of chronic disease process, i.e. end stage renal failure. The patient currently is heme negative. Is not prescribed Epogen per his report or iron. 2. End stage renal failure, now on hemodialysis Tuesdays, and Saturdays with last hemodialysis received yesterday. The patient still makes urine. 3. Spontaneous bacterial peritonitis while on peritoneal dialysis. 4. Cardiomyopathy, ejection fraction 30% to 35%. PLANS 1. Orders per nephrology for two units of packed red blood cells. I will ask that they be transfused slowly. 2. Anemia workup. Again, patient likely needs Epogen. 3. Nephrology consultation this morning. Dictated by Juhi Littlejohn M.D. AML/df TD: 05/05/2017 06:09 JOB #: [id number] CC: Hernan Edwards M.D. Unit #: [id number] #: [id number] Patient: TOBI HURTADO HISTORY AND PHYSICAL Page 1 of 1 X Juhi Littlejohn MD HISTORY AND PHYSICAL
[~2017-05-05 01:03] MED LIST changes: +CALCIUM ACETAT668 MG PO; +COREG PO; +DIFLUCAN200 MG PO; +FLAGYL PO; +FOSRENOL1000 M1 PO; +LEVAQUIN750 MG PO; +PERCOCET5/325 PO
[2017-05-05 02:21] LABS: BASOPHIL# 0.1 X10e3 (0-0.3); BASOPHIL% 0.8 % (0-2.5); EOSINOPHIL# 0.2 X10e3 (0-0.7); HEMATOCRIT 19.8 % (38.0-50.0); LYMPHOCYTE# 2.4 X10e3 (1.0-3.5); LYMPHOCYTE% 20.5 % (17.0-45.0); MEAN CELL VOLUME 85.8 FL (83-96); MEAN CORPUSCULAR HEMOGLOBIN 26.7 PG (28-34); MEAN CORPUSCULAR HGB CONC 31.2 g/dL (30-36); MEAN PLATELET VOLUME 6.2 FL (6.5-11.5); MONOCYTE% 8.4 % (3.0-12.0); NEUTROPHIL% 68.3 % (40-75); PLATELET COUNT 356 X10e3 (140-420); RED CELL DISTRIBUTION WIDTH 14.6 % (11.0-15.5); WHITE BLOOD COUNT 11.7 X10e3 (4.0-10.5)
[2017-05-05 02:32] LABS: DIFF IND YES; HEMOGLOBIN 6.2 gm/dL (13.0-16.0)
[2017-05-05 02:38] LABS: PLATELET ESTIMATE NORMAL (NORMAL)
[2017-05-05 02:39] LABS: ROULEAUX SLIGHT
[2017-05-05 02:44] LABS: BUN/CREATININE RATIO 3.42; CALCIUM SERUM 8.5 mg/dL (8.4-10.2); CREATININE SERUM 7.3 mg/dL (0.6-1.4); GLOM FILT RATE Estimated 10.7 mL/min (>60); POTASSIUM 3.4 mmol/L (3.5-5.1)
[2017-05-05] MEDS ORDERED: CALCIUM ACETAT667 M2 PO (03:13)
[2017-05-05] MEDS ORDERED: CALCIUM 500 +1 EAC2 PO (03:15)
[2017-05-05 06:54] LABS: FOLATE (FOLIC ACID) 7.4 ng/mL (>5.8)
[2017-05-05] MEDS ORDERED: FOSRENOL1000 M1 PO (09:33)
[2017-05-05 14:33] LABS: HEMATOCRIT 28.2 % (38.0-50.0)
[2017-05-05 14:36] LABS: HEMOGLOBIN 9.1 gm/dL (13.0-16.0)
== END 2017-05-05 17:50 | disposition home or self-care (01) | DRG 683 ==
LOC: CED 01:03 → CEDOF 04:40 → CED 05:03 → CEDOF 05:03 → C2A 08:44 → CEDOF 08:44 → C2A 17:50
PROVIDERS: Emergency Medicine; Family Medicine; Internal Medicine
DX: N18.6 End stage renal disease (principal); D63.1 Anemia in chronic kidney disease; Z99.2 Dependence on renal dialysis; I42.9 Cardiomyopathy, unspecified; Z79.899 Other long term (current) drug therapy
CPT/HCPCS: 36415; 36430; 80048; 82607; 82728; 82746; 83540; 83550; 85014; 85018; 85025; 85044; 86850; 86900; 86901; 86923; 99285; G0378; P9016